=== PATIENT | male | born 1980 | race Caucasian/White ===

== ENCOUNTER 2022-04-22 14:23 | Emergency (ER) | payer OTHER, SELFPAY ==
[2022-04-22 14:43] VITALS: BP 170/106; PULSE 71; RESP 20; TEMP 36.7; O2SAT 98
--- NOTE | 2022-04-22 14:45 | DI.CT_ITS ---
Exam(s) CT ABDOMEN PELVIS W EXAM: CT ABDOMEN PELVIS W CLINICAL HISTORY: let flank /abd pain, kidney stone v colitis. TECHNIQUE: Imaging Protocol: Axial computed tomography images with coronal and sagittal reformatted images were created and reviewed CONTRAST MATERIAL: Intravenous: Omnipaque-350 100cc Oral: None COMPARISON: No exams were available for comparison FINDINGS: VISUALIZED LUNG BASES: No nodules nor pleural effusions evident. ABDOMEN: There is no ascites. LIVER: There are no focal hepatic lesions evident. No dilated intrahepatic ducts. GALLBLADDER/BILIARY: No obvious gallbladder pathology. CBD is not dilated. PANCREAS: No evidence of pancreatic mass nor dilatation of the pancreatic duct. SPLEEN: Spleen is not enlarged. No obvious intrasplenic lesions. Splenic and portal veins are paten t. ADRENALS: There are no significant adrenal masses. KIDNEYS:Right kidney unremarkable. On the left side there is mild hydronephrosis and hydroureter. S mall calculus in the distal left ureter noted measuring approximately 3 millimeters. Ureter above th is level is dilated to diameter of 6 millimeters. There is some mild streaking around the left urete ropelvic junction there are no remaining radiopaque calculi in the left kidney. No calculi in the no ndistended urinary bladder. ABDOMINAL AORTA: Abdominal aorta is not enlarged. LYMPH NODES:There is no retroperitoneal nor paraaortic adenopathy. ABDOMINAL WALL: Small fat only containing umbilical hernia. GI: There is no evidence of bowel obstruction, free air, nor abscess. PELVIS: GI: No evidence of appendicitis.Sigmoid diverticulosis. No obvious acute diverticulitis.There is a c alcification in the the terminal ileum measuring approximately 1.3 by 0.9 cm. No obstruction at this level at this time. There does not appear to be inflammatory changes in the gallbladder nor around the gallbladder to suggest that this may have been caused by gallstone I ileus. LYMPH NODES: There is no intrapelvic nor inguinal adenopathy. REPRODUCTIVE: Prostate size normal. URINARY BLADDER: No calculi nor obvious masses evident OSSEOUS: No fractures and no significant osseous lesions. IMPRESSION: 1. Main finding here is left-sided hydronephrosis related to a 3 millimeter calculus in the lower lef t ureter just above the UVJ. Some mild streaking noted around the upper left ureter and left kidney. No evidence of urinoma. No remaining calculi in the kidneys. 2. Sigmoid diverticulosis but no evidence of obvious acute diverticulitis. 3. There is a 13 x 9 millimeter calcification in the terminal ileum just proximal to the ileocecal va lve, not associated with transition point in the bowel diameter at this level. The appendix is seen as separate and normal from this. Gallbladder appears unremarkable and without evidence to suggest t hat this would be related to gallstone ileus. Other smaller calcifications are noted in the small gina wel and perhaps this is related to ingested material-medication. 4. Other findings as above. Discussed with ER physician. RADIATION DOSE DELIVERED: 1,208.16mGy.cm Total DLP DATA REPOSITORY: All CT scans at this facility are submitted to the National Radiology Data Registry (NRDR) Dose Index Registry (DIR) with the [employer] (ACR). RADIATION OPTIMIZATION: All CT scans at this facility use at least one of these dose optimization te chniques: automated exposure control; mA and/or kV adjustment per patient size (includes targeted exa ms where dose is matched to clinical indication); or iterative reconstruction.
--- NOTE | 2022-04-22 14:56 | W.ED.GENAD ---
Discharge Plan Disposition Patient Disposition: Home Condition: Improving Discharge Details Clinical Impression: Kidney stone [facility]: Mio Metcalf Home Meds and New Rx's Prescriptions: New tamsulosin 0.4 mg capsule 0.4 mg PO DAILY 3 Days Qty: 3 0RF No Action fluoxetine 40 mg Capsule 40 mg PO DAILY Rx Instructions: not currently taking. ibuprofen 200 mg Tablet 400 mg PO Q6H PRN Discharge Instructions Instructions: Kidney Stones (ED) Additional Instructions: Please follow-up with your primary care physician. Follow-up with urology team as needed. Return to the emergency department for any worsening symptoms. Medical Decision Making 42-year-old male history of hypertension, presents with cute onset left flank pain left abdominal discomfort associate with nausea. Abdomen soft nontender nondistended afebrile nontoxic. Nonperitoneal however uncomfortable appearing. Denies history of abdominal surgery or kidney stones however given patient's clinical appearance high clinical suspicion for kidney stone versus diverticulitis versus colitis lower suspicion for appendicitis or cholecystitis. Trial of analgesia anti-inflammatory antiemetics fluids, CT abdomen pelvis labs urinalysis. Disposition pending reassessment and results 17: 23 patient resting comfortably feels much relief; stone seen at UVJ on CT scan. Patient likely passed stone in the bladder upon returning from CT. No evidence of UTI. HPI General Date/Time Provider Initiated Documentation: 04/22/22 14:26. HPI Narrative: 42-year-old male history of hypertension presents with acute onset left flank pain abdominal pain associate with nausea. Denies history of kidney stone or abdominal surgery Related Data Home Medications Medication Instructions Recorded Confirmed fluoxetine 40 mg capsule 40 mg PO DAILY 04/22/22 04/22/22 ibuprofen 200 mg tablet 400 mg PO Q6H PRN 04/22/22 04/22/22 tamsulosin 0.4 mg capsule 0.4 mg PO DAILY 3 days #3 caps 04/22/22 Previous Rx's Medication Instructions Recorded tamsulosin 0.4 mg capsule 0.4 mg PO DAILY 3 days #3 caps 04/22/22 Allergies Allergy/AdvReac Type Severity Reaction Status Date / Time No Known Allergies Allergy Unverified 04/22/22 14:48 General Stated Complaint: FlankPain PATRICK: 3 Review of Systems Narrative: Review of Systems Constitutional: negative Eyes: negative ENT: negative Cardiovascular: negative Respiratory: negative Gastrointestinal: Abdominal pain : negative Musculoskeletal: negative Skin: negative Neurologic: negative Psych: negative PFSH All Active Problems (Updated 04/22/22 @ 17:25 by Mio Metcalf MD) Kidney stone (Chronic) Social History Smoking/Tobacco Use Status: Never Smoking risk assessment performed?: Yes Alcohol Intake: current Alcohol Intake frequency: a few times a week Alcohol type: beer Drug use: Never Substance use type: does not use Do you feel safe at home: Yes Do you feel safe in your relationship?: Yes Exam Narrative Exam Narrative: Physical Examination General: alert, awake, cooperative, mildly uncomfortable HEENT: normocephalic, atraumatic; PERRL, EOM intact, conjunctiva normal; no nasal discharge; moist mucous membranes, oral and pharyngeal mucosa normal, tolerating secretions Neck: supple, trachea midline; full ROM Chest: normal to inspection Respiratory: normal respiratory effort, speaking in full sentences, clear to auscultation, no wheezing, rales or rhonchi Cardiac: regular rate, regular rhythm, S1S2 intact, no murmurs rubs or gallops GI: abdomen soft, non-tender, non-distended; no palpable mass or hepatosplenomegaly Skin: no lesions, rashes or trauma appreciated Neuro: AAOx3, normal speech, moving all extremities Psych: Appropriate mood and affect Course Vital Signs Vital signs: Vital Signs Temperature 36.7 C 04/22/22 14:43 Pulse 71 04/22/22 14:43 Respiratory Rate 20 04/22/22 14:43 Blood Pressure 170/106 H 04/22/22 14:43 Pulse Oximetry 98 04/22/22 14:43 Temperature 36.7 C 04/22/22 14:43 Temperature Source Oral 04/22/22 14:43 Pulse 71 04/22/22 14:43 Respiratory Rate 20 04/22/22 14:43 Respiratory Effort Normal, Non-Labored 04/22/22 14:46 Blood Pressure 170/106 H 04/22/22 14:43 Blood Pressure Position Sitting 04/22/22 14:43 Pulse Oximetry 98 04/22/22 14:43 Oxygen Delivery Method Room Air 04/22/22 14:43 Oxygen Flow Rate 0 04/22/22 14:43 Pain Level 9 04/22/22 14:43 PAWSS Have you Been Recently Intoxicated or Drunk Within the Last 30 days?: Yes Have you Ever Experienced Previous Episodes of Alcohol Withdrawal?: Yes Have you ever Experienced Withdrawal Seizures?: No Have you ever Experienced Delirium Tremens(DT)s?: Yes Have you ever undergone Alcohol Rehabilitation Treatment (i.e, inpt ot outpatient treatment programs)?: Yes Have you ever Experienced Blackouts?: No Have you ever Combined Alcohol with other Downers within the last 90 days?: No Have you ever Combined Alcohol with any other Substance of Abuse during the last 90 days?: No Positive Blood Alcohol level on Presentation? [PCS.BAL]: No Evidence of Increased Autonomic Activity (i.e. HR>120, tremor, sweating, agitation, nausea)?: No Result: 4
[2022-04-22 14:59] LABS: Bilirubin Negative (Negative); Blood Moderate (Negative); Clarity Clear (Clear); Glucose Negative (Negative); Ketones Negative (Negative); Leukocyte Esterase Negative (Negative); Nitrite Negative (Negative); Specific Gravity >= 1.030 (1.005-1.025); Urobilinogen 0.2 mg/dL (Up to 0.2); pH 5.5 (5-8)
[2022-04-22 15:05] LABS: Bacteria Negative HPF (Negative); C & S Indicated? No; Casts 0-2 Hyaline LPF (Negative); Crystals Negative HPF (Negative); Epithelial Cells Rare HPF (Negative); Mucus Moderate (Negative); WBC Negative HPF (0-5)
[2022-04-22] MEDS: Normal Saline 1,000 ML 1000 ML IV (15:05)
[2022-04-22] MEDS: Ketorolac 15 MG/ML VIAL IVP (15:06)
[2022-04-22] MEDS: Ondansetron 4 MG/2 ML VIAL IVP (15:06)
[2022-04-22] MEDS: MORPHine 4 MG/ML SYR 2 MG IVP (15:07)
[2022-04-22] MEDS: Tamsulosin 0.4 MG CAPCR PO (15:14)
[2022-04-22 15:15] LABS: Abs Immature Grans 0.04 10^3/uL (0.0-0.06); Absolute Eosinophil Count 0.11 10^3/uL (0.0-0.7); Absolute Lymphocyte Count 1.98 10^3/uL (1.2-3.4); Absolute Monocyte Count 0.62 10^3/uL (0.1-0.8); Basophils % 0.8; Eosinophils % 0.9; HCT 41.8 % (40.0-50.0); HGB 14.7 g/dL (13.5-17.5); Immature Grans % 0.3; Lymphocytes % 16.6; MCHC 35.2 % (32.0-36.0); MCV 94 fL (80-95); MPV 10.3 fL (8.0-11.0); Monocytes % 5.2; Neutrophils % 76.2; Platelet Count 233 10^3/uL (130-400); RBC 4.45 10^6/uL (4.36-5.78); RDW 11.8 % (11.8-14.1); RDW-SD 40.7 fL; WBC 11.91 10^3/uL (4.4-10.8)
[2022-04-22 15:16] LABS: Absolute Neutrophil Count 9.08 10^3/uL (1.2-6.7)
[2022-04-22 15:31] LABS: ALT 30 U/L (16-63); AST 16 U/L (15-37); Albumin 4.2 g/dL (3.4-5.0); Alkaline Phosphatase 79 U/L (46-116); Anion Gap 9.6 mmol/L (3-11); BUN 14 mg/dL (7-18); Bilirubin, Total 0.4 mg/dL (0.2-1.0); CO2 28.4 mmol/L (21.0-32.0); CREATININE 1.1 mg/dL (0.70-1.30); Chloride 103 mmol/L (98-107); Estimated GFR 85.95 (mL/min/1.73m2); Glucose 144 mg/dL (74-106); Potassium 3.5 mmol/L (3.5-5.1); Sodium 141 mmol/L (136-145); Total Protein 7.5 g/dL (6.4-8.2)
[2022-04-22] MEDS: ACETAMINOPHEN 1,000 MG/100 ML BTL 400 MG IVPB (15:42)
[2022-04-22] MEDS: MORPHine 10 MG/ML VIAL 2 MG IVP (16:04)
[2022-04-22] MEDS: Normal Saline - Diluent 50 ML VIAL IJ (16:22)
[2022-04-22] MEDS: Omnipaque 350 MG/ML 100 ML BTL IJ (16:23)
[2022-04-22 17:37] VITALS: BP 138/78; PULSE 68; RESP 16
== END 2022-04-22 17:39 | disposition home or self-care (01) ==
PROVIDERS: Emergency Provider Emergency Medicine
DX: N20.0 Calculus of kidney (principal); I10 Essential (primary) hypertension
CPT/HCPCS: 36415; 80053; 96361; 96374; 96375; 96376; 99285; 74177; 81003; 81015; 85025; 99283; J0131; J1885; J2270; J2405; J3490

== ENCOUNTER 2022-04-25 11:59 | Emergency (ER) | payer OTHER, SELFPAY ==
[2022-04-25 12:09] VITALS: BP 164/115; PULSE 110; RESP 18; TEMP 37.3; O2SAT 95
--- NOTE | 2022-04-25 14:45 | DI.CT_ITS ---
Exam(s) CT ABDOMEN PELVIS WO EXAM: CT ABDOMEN PELVIS WO CLINICAL HISTORY: Left flank pain. TECHNIQUE: Imaging Protocol: Axial computed tomography images with coronal and sagittal reformatted images were created and reviewed. COMPARISON: CT CT ABDOMEN PELVIS W from 04/22/2022 FINDINGS: ABDOMEN: Lung Bases: Normal where visualized. Liver: Normal density. No measurable mass. Gallbladder and biliary tract: No radiodense calculus or biliary ductal dilation. Pancreas: Normal density, no abnormal calcifications or inflammatory process. Spleen: Normal. Kidneys: Normal size, contour and axis.There is again seen a 5 mm stone in the distal left ureter cau sing moderate hydronephrosis. Contrast from the patient's recent CT examination is seen in the left renal collecting system. No masses seen. Adrenal glands: No mass is seen. Lymph nodes: Within normal limits. Abdominal Aorta: Abdominal portion non-dilated. PELVIS: Bladder:Symmetric distention, no gross wall thickening. Bowel: No obstruction or bowel wall thickening. Appendix is unremarkable. There is colonic diverticu losis but no evidence of acute diverticulitis. Peritoneal cavity: No ascites, collection or mesenteric inflammatory response. No free air. Reproductive organs: Unremarkable as visualized. Bones: Within normal limits. Soft Tissues: Within normal limits. IMPRESSION: 1. There is no change in the location of the distal left ureteral stone and hydronephrosis. 2. Findings were discussed with Megan Mills at 4:29 p.m. on 04/25/2022. RADIATION DOSE DELIVERED: 1,121.18mGy.cm Total DLP DATA REPOSITORY: All CT scans at this facility are submitted to the National Radiology Data Registry (NRDR) Dose Index Registry (DIR) with the [employer] (ACR). RADIATION OPTIMIZATION: All CT scans at this facility use at least one of these dose optimization te chniques: automated exposure control; mA and/or kV adjustment per patient size (includes targeted exa ms where dose is matched to clinical indication); or iterative reconstruction.
--- NOTE | 2022-04-25 14:49 | ED.GENADUL_ITS ---
Discharge Plan Disposition Patient Disposition: Home Condition: Stable Discharge Details Clinical Impression: Kidney stone [facility]: [facility] Home Meds and New Rx's Prescriptions: New tamsulosin 0.4 mg capsule 0.8 mg PO DAILY Qty: 10 0RF Continued fluoxetine 40 mg Capsule 40 mg PO DAILY Rx Instructions: not currently taking. Changed ibuprofen 200 mg Tablet 600 mg PO Q6H PRNQty: 0 0RF Discharge Instructions Instructions: Kidney Stones (ED) Additional Instructions: Drink at least 6 to 8 glasses of water daily to stay well-hydrated Report sign of urinary infection including fever chills back pain cloudy or foul-smelling urine or any concern immediately Referrals: Gurwinder Taylor MD [ [facility] STAFF PHYSICIAN] - Medical Decision Making <Jayda Rios NP - Last Filed: 04/25/22 15:33> 42-year-old male presents to the ER after being seen 3 days ago diagnosed with a kidney stone on on the left side. He reports that he last took his tamsulosin this morning. Still has some left lower quadrant and left flank pain. CT abdomen pelvis without contrast ordered to eval kidney stone. Urinalysis or dered. I did discuss the risks associated with rescanning patient verbalized understanding is in agreement with the plan. Care is to be handed off to oncoming provider Megan Mills NP pending CT i maging. I did discuss patient case with her she verbalized understanding. Medical Records Medical records reviewed: Yes I reviewed the patient's medical records. <Megan Mills NP - Last Filed: 04/25/22 16:55> 42-year-old male presents to the ER after being seen 3 days ago diagnosed with a kidney stone on on the left side. He reports that he last took his tamsulosin this morning. Still has some left lower quadrant and left flank pain. CT abdomen pelvis without contrast ordered to eval kidney stone. Urinalysis ordered. I did discuss the risks associated with rescanning patient verbalized understanding is in agreement with the plan. Care is to be handed off to oncoming provider Megan Mills NP pending CT imaging. I did discuss patient case with her she verbalized understanding. CAT scan was reviewed with Dr. Millan and is unchanged from 3 days ago. His pain has resolved after taking p.o. Toradol. He is safe for discharge to home urine is not infected will continue taking ibuprofen I have advised him to increase his dose to 600 mg and we will double his tamsulosin to 0.8 mg he should follow- up with urology HPI <Jayda Rios NP - Last Filed: 04/25/22 15:33> General Mode of arrival: ambulatory . Date/Time Provider Initiated Documentation: 04/25/22 12:06 . Limitations to Documentation: no limitations . Information obtained by: patient, RN notes reviewed and old records reviewed . HPI Narrative: 42-year-old male presents to the ER after being seen 3 days ago diagnosed with a kidney stone on on the left side. He reports that he last took his tamsulosin this morning. Still has some left lower quadrant and left flank pain. Denies any nausea vomiting or problems urinating. Related Data Home Medications Medication Instructions Recorded Confirmed fluoxetine 40 mg capsule 40 mg PO DAILY 04/22/22 04/25/22 ibuprofen 200 mg tablet 600 mg PO Q6H PRN #0 tabs 04/25/22 04/25/22 tamsulosin 0.4 mg capsule 0.8 mg PO DAILY #10 caps 04/25/22 Previous Rx's Medication Instructions Recorded ibuprofen 200 mg tablet 600 mg PO Q6H PRN #0 tabs 04/25/22 tamsulosin 0.4 mg capsule 0.8 mg PO DAILY #10 caps 04/25/22 Allergies Allergy/AdvReac Type Severity Reaction Status Date / Time No Known Allergies Allergy Unverified 04/22/22 14:48 General Stated Complaint: FlankPain PATRICK: 3 Review of Systems <Jayda Rios NP - Last Filed: 04/25/22 15:33> All systems reviewed & are unremarkable except as noted in HPI and below Genitourinary Genitourinary: Reports as per HPI and Reports flank pain PFSH <Jayda Rios NP - Last Filed: 04/25/22 15:33> All Active Problems (Updated 04/25/22 @ 16:53 by Megan Mills NP) Kidney stone (Chronic) Social History Smoking/Tobacco Use Status: Never Smoking risk assessment performed?: Yes Alcohol Intake: current Alcohol Intake frequency: a few times a week Alcohol type: beer Drug use: Never Substance use type: does not use Do you feel safe at home: Yes Do you feel safe in your relationship?: Yes Exam <Jayda Rios NP - Last Filed: 04/25/22 15:33> Narrative Exam Narrative: Constitutional: Alert and oriented x3. Appears stated age. Normal body habitus. Head: Normocephalic, no trauma. Eyes: Pupils PERRL, Red reflex noted, EOM's intact. Eyelids symmetrical without lesions, discharge, or swelling. ENT: Bilateral TM's WNL, External ear normal to inspection, no mastoid TTP, swelling, or erythema, Nasal turbinates WNL, no nasal discharge. Normal dentition, Posterior pharynx WNL, no exudate. Chest: RRR, Normal S1, S2, distal pulses intact. Resp: Lungs clear to auscultation bilaterally, no wheezes, rales, or rhonchi. Abdomen: Soft, non-distended, Normoactive bowel sounds all 4 quads. Musculoskeletal: Normal gait, 5/5 strength to all four extremities. Skin: No suspicious rashes or lesions. Capillary refill less than 2 sec. Neurologic: Cranial nerves II-XII intact. Alert and oriented x 3. Motor: No deficits noted. Sensory: Intact bilaterally all 4 extremities. Reflexes: DTR's intact bilaterally.. Hematologic/Lymphatic: No ecchymosis, no lymphadenopathy. Course <Jayda Rios NP - Last Filed: 04/25/22 15:33> Vital Signs Vital signs: Vital Signs Temperature 37.3 C 04/25/22 12:09 Pulse 110 H 04/25/22 12:09 Respiratory Rate 18 04/25/22 12:09 Blood Pressure 164/115 H 04/25/22 12:09 Pulse Oximetry 95 04/25/22 12:09 Temperature 37.3 C 04/25/22 12:09 Temperature Source Tympanic 04/25/22 12:09 Pulse 110 H 04/25/22 12:09 Respiratory Rate 18 04/25/22 12:09 Respiratory Effort Normal, Non-Labored 04/25/22 14:40 Blood Pressure 164/115 H 04/25/22 12:09 Blood Pressure Position Sitting 04/25/22 12:09 Pulse Oximetry 95 04/25/22 12:09 Oxygen Delivery Method Room Air 04/25/22 12:09 Oxygen Flow Rate 0 03/10/23 12:09 Pain Level 4 04/25/22 12:09 Sign Out <Jayda Rios NP - Last Filed: 04/25/22 15:33> Sign Out Data: Sign Out Comment: Pending CT abdomen pelvis here for recheck of left-sided kidney stone. Did have a 3 mm stone above the UVJ on Thursday. Last updated by Jayda Rios NP at 04/25/22 15:34
[2022-04-25] MEDS: Ketorolac 10 MG TAB PO (14:58)
[2022-04-25 16:28] LABS: Bilirubin Negative (Negative); Blood Large (Negative); Clarity Clear (Clear); Glucose Negative (Negative); Ketones Negative (Negative); Leukocyte Esterase Trace (Negative); Nitrite Negative (Negative); Urobilinogen 0.2 mg/dL (Up to 0.2)
[2022-04-25 16:34] LABS: Bacteria Negative HPF (Negative); C & S Indicated? No; Casts Negative LPF (Negative); Crystals Negative HPF (Negative); Epithelial Cells Few HPF (Negative); Mucus Negative (Negative); Other Cells Negative (Negative); WBC 0-2 HPF (0-5)
[2022-04-25] MEDS: Tamsulosin 0.4 MG CAPCR PO (16:59)
[2022-04-25 17:00] VITALS: BP 123/79; PULSE 81; RESP 18; O2SAT 98
== END 2022-04-25 17:00 | disposition home or self-care (01) ==
PROVIDERS: Registered Nurse Emergency; Emergency Provider Nurse Practitioner Acute Care
DX: N20.0 Calculus of kidney (principal)
CPT/HCPCS: 99284; 74176; 81003; 81015